=== PATIENT | male | born 1965 | race Caucasian/White ===

== ENCOUNTER 2021-07-09 10:15 | Emergency (ER) | payer OTHER ==
[~2021-07-09] VITALS: Wt 104.9 kg
[2021-07-09 11:08] LABS: HEMATOCRIT 47.2 % (42.0-52.0); HEMOGLOBIN 16.3 g/dL (13.5-18.0); MEAN CELL VOLUME 87 fl (78-100); MEAN CORPUSCULAR HEMOGLOBIN 30 pg (27-31); MEAN CORPUSCULAR HGB CONC 35 g/dL (33-37); MEAN PLATELET VOLUME 9.8 fl (7.4-10.4); PLATELET COUNT 197 K/mm3 (130-400); RED BLOOD COUNT 5.45 M/mm3 (4.20-5.60); RED CELL DISTRIBUTION WIDTH 13.4 % (11.5-14.5); WHITE BLOOD COUNT 15.2 K/mm3 (4.8-10.8)
[2021-07-09 11:21] LABS: ALBUMIN 3.9 g/dL (3.5-5.0); POTASSIUM 3.6 mmol/L (3.5-5.1); SODIUM 134 mmol/L (136-145)
[2021-07-09 11:22] LABS: CALCIUM 9.4 mg/dL (8.3-10.5)
[2021-07-09 11:23] LABS: GLUCOSE 118 mg/dL (75-110); TOTAL PROTEIN 7.6 g/dL (6.4-8.3)
[2021-07-09 11:24] LABS: CARBON DIOXIDE 20 mmol/L (22-29)
[2021-07-09 11:25] LABS: TOTAL BILIRUBIN 2.6 mg/dL (0.2-1.2)
[2021-07-09 11:29] LABS: AST-SGOT 47 U/L (5-34)
[2021-07-09 11:30] LABS: ALT/SGPT 70 U/L (0-55)
[2021-07-09 11:33] LABS: PARTIAL THROMBOPLASTIN TIME 26.9 SECONDS (21.0-32.0)
[2021-07-09 11:38] LABS: D-DIMER 0.7 mg/L FEU (0.15-0.50); TROPONIN-I < 0.03 ng/mL (<0.030)
[2021-07-09 11:44] LABS: LYMPHOCYTE 2 % (20-51); MONOCYTE 6 % (3-10); NEUTROPHILS 92 % (42-75)
[2021-07-09] MEDS ORDERED: MORGIDOX 1X100100 MG PO (15:03)
[2021-07-09 15:35] VITALS: BP 146/78
== END 2021-07-09 15:10 | disposition home or self-care (01) ==
LOC: ED 10:15
PROVIDERS: Nurse Practitioner
DX: L03.116 Cellulitis of left lower limb (principal); R79.1 Abnormal coagulation profile; Z20.822 Contact with and (suspected) exposure to COVID-19
CPT/HCPCS: J0696; J1650; J7030; Q9967

== ENCOUNTER → 2021-07-10 | Outpatient (CLI) | payer OTHER ==
[~2021-07-10] MED LIST: MORGIDOX 1X100100 MG PO
== END ==
LOC: VAS 09:08 → RAD 09:15 → VAS 09:15
DX: M79.89 Other specified soft tissue disorders (principal)

== ENCOUNTER 2022-05-12 10:19 | Emergency (ER) | payer OTHER ==
[2022-05-12 11:32] LABS: HEMATOCRIT 44.4 % (42.0-52.0); HEMOGLOBIN 15.5 g/dL (13.5-18.0); MEAN CELL VOLUME 86 fl (78-100); MEAN CORPUSCULAR HEMOGLOBIN 30 pg (27-31); MEAN CORPUSCULAR HGB CONC 35 g/dL (33-37); MEAN PLATELET VOLUME 9.1 fl (7.4-10.4); PLATELET COUNT 198 K/mm3 (130-400); RED BLOOD COUNT 5.19 M/mm3 (4.20-5.60); RED CELL DISTRIBUTION WIDTH 13.6 % (11.5-14.5); WHITE BLOOD COUNT 17.6 K/mm3 (4.8-10.8)
[2022-05-12 11:40] LABS: ALBUMIN 3.9 g/dL (3.5-5.0); POTASSIUM 3.4 mmol/L (3.5-5.1)
[2022-05-12 11:42] LABS: CALCIUM 8.8 mg/dL (8.3-10.5)
[2022-05-12 11:45] LABS: TOTAL BILIRUBIN 3.7 mg/dL (0.2-1.2)
[2022-05-12 11:53] LABS: LYMPHOCYTE 1 % (20-51); MONOCYTE 4 % (3-10); NEUTROPHILS 95 % (42-75)
[2022-05-12] MEDS ORDERED: CEPHALEXIN500 M1 PO (12:16)
[2022-05-12 12:33] VITALS: BP 144/85
== END 2022-05-12 12:30 | disposition home or self-care (01) ==
LOC: ED 10:19
PROVIDERS: Nurse Practitioner
DX: L03.116 Cellulitis of left lower limb (principal); Z28.310 Unvaccinated for COVID-19
CPT/HCPCS: J0696